=== PATIENT | female | born 2000 | race Caucasian/White ===

== ENCOUNTER 2020-12-15 18:56 | Emergency (ER) | payer OTHER ==
[~2020-12-15] VITALS: Ht 154.9 cm; Wt 56.7 kg
[2020-12-15] MEDS ORDERED: PENICILLIN V P500 MG PO (19:11)
== END 2020-12-15 19:15 | disposition home or self-care (01) ==
LOC: ED 18:56
DX: J02.9 Acute pharyngitis, unspecified (principal); F17.200 Nicotine dependence, unspecified, uncomplicated
CPT/HCPCS: 99283